=== PATIENT | female | born 1995 | race Caucasian/White ===

== ENCOUNTER 2018-08-12 09:05 | Emergency (ER) | payer OTHER ==
[2018-08-12 09:11] VITALS: BP 114/71; PULSE 95; TEMP 98.3; BMI 48.8
[2018-08-12] MEDS ORDERED: ONDANSETRON 4 MG TABLET PO ONE ×2 (09:29→09:49)
[2018-08-12] MEDS ORDERED: RANITIDINE HCL 150 MG TABLET (FP) PO ONE (09:29)
--- NOTE | 2018-08-12 09:47 | PDOC ---
History of Present Illness - General Chief Complaint: Sore Throat Stated Complaint: SORE THROAT NAUSEA Time Seen by Provider: 08/12/18 09:21 History Source: Patient - History of Present Illness Timing/Duration: reports: other Past History - Past Medical History Allergies/Adverse Reactions: Allergies Allergy/AdvReac Type Severity Reaction Status Date / Time No Known Allergies Allergy Verified 08/12/18 09:07 Home Medications: Ambulatory Orders Famotidine [Pepcid] 20 mg PO DAILY #7 tablet 08/12/18 Ondansetron HCl [Zofran] 4 mg PO Q8H #12 tablet 08/12/18 COPD: No - Immunization History Immunization Up to Date: Yes - Suicide/Smoking/Psychosocial Hx Smoking History: Current every day smoker Number of Cigarettes Smoked Daily: 4 Information on smoking cessation initiated: No Hx Alcohol Use: No Drug/Substance Use Hx: No Review of Systems - Review of Systems Constitutional: No: Chills, Fever HEENTM: Yes: Ear Pain, Throat Pain Respiratory: Yes: Cough. No: Shortness of Breath, Hemoptysis Cardiac (ROS): No: Chest Pain ABD/GI: Yes: Diarrhea, Nausea, Vomiting, Abdominal cramping. No: Blood Streaked Bowels, Constipated, Tarry Stools : No: Dysuria, Discharge, Flank Pain, Hematuria *Physical Exam - Vital Signs Last Vital Signs Temp Pulse Resp BP Pulse Ox 98.3 F 95 H 16 114/71 98 08/12/18 09:07 08/12/18 09:07 08/12/18 09:07 08/12/18 09:07 08/12/18 09:07 - Physical Exam General Appearance: Yes: Appropriately Dressed. No: Apparent Distress HEENT: positive: Normal ENT Inspection, Normal Voice, TMs Normal, Pharynx Normal. negative: Scleral Icterus (R), Scleral Icterus (L) Neck: positive: Supple. negative: Lymphadenopathy (R), Lymphadenopathy (L) Respiratory/Chest: positive: Lungs Clear, Normal Breath Sounds. negative: Respiratory Distress Cardiovascular: positive: Regular Rate, S1, S2 Gastrointestinal/Abdominal: positive: Normal Bowel Sounds, Tender (minimal ttp to epigastrium), Soft. negative: Distended, Guarding, Rebound Musculoskeletal: negative: CVA Tenderness Integumentary: positive: Dry, Warm Neurologic: positive: Fully Oriented, Alert, Normal Mood/Affect Medical Decision Making - Medical Decision Making 08/12/18 09:30 23-year-old morbidly obese female with history of asthma, here with multiple complaints. Patient states for the past week has had mostly dry cough with sore throat, nasal congestion and bilateral ear pain. No hemoptysis, shortness of breath, body aches, fever or chills. Patient also reports 2 weeks of intermittent, non-radiating epigastric pain, worse after she eats, with intermittent nausea, vomiting and diarrhea. No hematemesis, bright red blood per rectum or melena. Denies any dysuria or vaginal discharge. No history of similar episode per patient. Denies excessive ETOH or NSAID use. Denies history of gallstones or kidney stones See exam Viral URI Exam unremarkable -dc w/ supportive tx Epigastric pain Possible gastritis/GERD given worsening w/ food vs gastroenteritis (given diarrhea), NT over RUQ and mcburneys, unlikely uti/pyelo Exam only remarkable for minimal ttp to epigastrium -dose of zantac/zofran -ua/preg 08/12/18 10:35 ua/preg negative. Patient reports improvement in epigastric pain with Zantac. Able to tolerate po here. Will dc with prescriptions and have patient follow- up with her PMD *DC/Admit/Observation/Transfer Diagnosis at time of Disposition: Epigastric abdominal pain URI (upper respiratory infection) Qualifiers: URI type: unspecified viral URI Qualified Code(s): J06.9 - Acute upper respiratory infection, unspecified - Discharge Dispostion Disposition: HOME Condition at time of disposition: Improved - Prescriptions Prescriptions: Famotidine [Pepcid] 20 mg PO DAILY #7 tablet Ondansetron HCl [Zofran] 4 mg PO Q8H #12 tablet - Referrals - Patient Instructions Printed Discharge Instructions: DI for Viral Upper Respiratory Infection -- Adult, DI for Epigastric Pain Additional Instructions: Take medications as directed and follow-up with your PMD if symptoms persist - Post Discharge Activity Forms/Work/School Notes: Back to Work
[2018-08-12] MEDS ORDERED: RANITIDINE HCL 150 MG TABLET (FP) ONE (09:49)
[2018-08-12 10:16] LABS: HCG,QUALITATIVE URINE Negative
[2018-08-12 10:21] LABS: PH,URINE 5.5 (5.0-8.0); URINE APPEARANCE CLOUDY; URINE BILIRUBIN NEGATIVE (NEGATIVE); URINE COLOR YELLOW; URINE GLUCOSE (UA) NEGATIVE (NEGATIVE); URINE KETONE TRACE (NEGATIVE); URINE LEUK ESTERASE NEGATIVE (NEGATIVE); URINE NITRITE NEGATIVE (NEGATIVE); URINE PROTEIN TRACE (NEGATIVE)
--- NOTE | 2018-08-13 17:12 | PDOC ---
Patient Follow-up (Call Back) - Post ED Follow - Up Condition at time of discharge: Improved Disposition at time of original discharge: HOME Reason for Call Back: Complaint/Condition F/U (Pt calls looking for an antibiotic. She was diagnosed with a viral illness on 08/12/18. Explained that viruses are not treated with antibiotics. She asks for something for the pain, sent over Tylenol to patient pharmacy. She states she has no allergies to medication.)
== END 2018-08-12 10:38 | disposition home or self-care (01) ==
LOC: JERFT 09:05
DX: J06.9 Acute upper respiratory infection, unspecified (principal); B97.89 Other viral agents as the cause of diseases classified elsewhere; R10.13 Epigastric pain
CPT/HCPCS: 81003; 84703; 99281-25